=== PATIENT | female | born 1950 | race Caucasian/White ===

== ENCOUNTER 2017-01-17 22:43 | Emergency (ER) | payer BC, MEDICARE ==
[2017-01-17 22:56] VITALS: BP 197/95
--- NOTE | 2017-01-17 23:02 | EDM.PDOC ---
ED HPI GENERAL MEDICAL PROBLEM - General Chief Complaint: Laceration Stated Complaint: fall on ice Time Seen by Provider: 01/17/17 22:56 Source of Information: Reports: Patient History Limitations: Reports: No Limitations - History of Present Illness INITIAL COMMENTS - FREE TEXT/NARRATIVE: 67-year-old female presents the ED after slipping and falling on ice outside of her home tonight. She states she was dropped off onset her apartment building by the cab about 10:00. She was being careful but slipped on the ice and she feels she went prone and then landed hard on the pavement and cement. She struck the back of her occipital head very hard on the concrete. No loss of consciousness but transiently dazed with associated nausea. No vomiting. She has been bleeding from the back of her head. Denies any neck pain back pain some mild right elbow pain. Walk okay. She had to call the cab back to come pick her up to bring her to the hospital. She is alert and oriented. Not on aspirin for the last 8 days. She believes she is up-to-date on her tetanus toxoid. Onset: Today Onset Date: 01/17/17 Onset Time: 22:00 Duration: Minutes: Location: Reports: Head (Exceptional scalp) Quality: Reports: Ache Severity: Moderate Improves with: Reports: None Worsens with: Reports: None Context: Reports: Trauma (Slipped and fell on the ice.) Associated Symptoms: Reports: No Other Symptoms, Rash (Mild pain right elbow), Other. Denies: Confusion, Chest Pain, Cough, cough w sputum, Diaphoresis, Fever /Chills, Headaches, Loss of Appetite, Malaise, Nausea/Vomiting, Seizure, Shortness of Breath, Syncope Treatments [employer] WORKER: Reports: Other (see below) (None.) Head Pain Score (Numeric/FACES): 6 - Related Data Allergies Allergy/AdvReac Type Severity Reaction Status Date / Time amoxicillin Allergy Rash Verified 05/16/14 00:13 Home Meds: Home Meds Aspirin [Speers Aspirin] 81 mg PO DAILY 05/16/14 [History] Lisinopril [Zestril] 10 mg PO DAILY 05/16/14 [History] Metoprolol Succinate 50 mg PO DAILY 05/16/14 [History] Past Medical History Cardiovascular History: Reports: Hypertension Social & Family History - Tobacco Use Smoking Status *Q: Never Smoker - Alcohol Use Days Per Week of Alcohol Use: 0 - Recreational Drug Use Recreational Drug Use: No - Living Situation & Occupation Living situation: Reports: Single Occupation: Employed ED ROS GENERAL - Review of Systems Review Of Systems: See Below Constitutional: Denies: Fever, Chills, Malaise, Weakness, Fatigue, Decreased Appetite, Weight Loss HEENT: Reports: No Symptoms, Other (Just having a lot of dental work done recently had teeth extracted with sutures in place and new dentures placed. Within the last week) Respiratory: Reports: No Symptoms Cardiovascular: Reports: No Symptoms Endocrine: Reports: No Symptoms GI/Abdominal: Reports: No Symptoms : Reports: No Symptoms Musculoskeletal: Reports: Back Pain Skin: Reports: No Symptoms (Chronic low back pain) Neurological: Reports: No Symptoms Psychiatric: Reports: No Symptoms ED EXAM, SKIN/RASH Exam: See Below Exam Limited By: No Limitations General Appearance: Alert, WD/WN, Anxious (Mild), Mild Distress Eye Exam: Bilateral Eye: Normal Inspection, PERRL Ears: Normal External Exam, Normal TMs Throat/Mouth: Normal Inspection (No bleeding in the oral cavity), Normal Lips, Normal Oropharynx, Other Head: Atraumatic, Normocephalic Neck: Normal Inspection, Supple, Non-Tender, Full Range of Motion Respiratory/Chest: No Respiratory Distress, Lungs Clear, Normal Breath Sounds, No Accessory Muscle Use Cardiovascular: Normal Peripheral Pulses, Regular Rate, Rhythm, No Edema, No Murmur Peripheral Pulses: 2+: Posterior Tibial (L), Posterior Tibial (R), Dorsalis Pedis (L), Dorsalis Pedis (R) GI/Abdominal: Normal Bowel Sounds, Soft, Non-Tender, No Organomegaly, No Distention Back Exam: Normal Inspection, Full Range of Motion. No: CVA Tenderness (L), CVA Tenderness (R) Extremities: Other (Minimal abrasion to the) Neurological: Alert, Oriented, CN II-XII Intact, Normal Cognition, Normal Gait, Normal Reflexes, No Motor/Sensory Deficits Psychiatric: Normal Affect Skin: Warm, Dry, Intact, Normal Color, No Rash Course - Vital Signs Last Recorded V/S: Last Vital Signs Temp 36.5 C 01/17/17 22:54 Pulse 90 01/17/17 22:54 Resp 20 01/17/17 22:54 BP 197/95 H 01/17/17 22:54 Pulse Ox 96 01/17/17 22:54 - Orders/Labs/Meds Orders: Active Orders 24 hr Category Date Time Status Head wo Cont [CT] Stat Exams 01/17/17 22:59 Taken - Radiology Interpretation Free Text/Narrative:: 67-year-old female presents to the ED after slipping and falling on the ice outside of her home tonight. She states she almost went prone and landed hard on her back but talk and back of her head hit the pavement pretty hard. She was dazed transiently she noted that she was bleeding from her occipital scalp but of course can't tell where. No loss of consciousness. No nausea or vomiting. Accident happened within the last hour She does have a superficial abrasion to the back of her head which will be cleaned up to make sure it does not require sutures. CT head will be obtained. Her neck shows full an obstructed range of motion I don't think she needs CT of her neck. - Re-Assessments/Exams Free Text/Narrative Re-Assessment/Exam: 01/17/17 23:42 CT of the head is within normal limits other than a significant of course occipital scalp hematoma. No skull fractures or intracranial bleeding or mass effect identified. She feels she is up-to-date on her tetanus toxoid. The wound on her occipital scalp is circular circular and morbid abrasion without any laceration that needs to be repaired. Will therefore be discharged to home. Departure - Departure Time of Disposition: 23:50 Disposition: Home, Self-Care 01 Condition: Fair Clinical Impression: Fall Qualifiers: Encounter type: initial encounter Qualified Code(s): W19.XXXA - Unspecified fall, initial encounter Closed head injury without concussion Qualifiers: Encounter type: initial encounter Qualified Code(s): S09.90XA - Unspecified injury of head, initial encounter Scalp abrasion Qualifiers: Encounter type: initial encounter Qualified Code(s): S00.01XA - Abrasion of scalp, initial encounter - Discharge Information Instructions: Abrasion, [id number] Referrals: Samantha Jiang NP [Primary Care Provider] - Forms: ED Department Discharge Additional Instructions: Evaluation the emergency room tonight in regards to slip and fall on the ice with blunt trauma to the occipital scalp and likely to the mid and lower back and Botox as well. Expect to be much more stiff and sore over the next 24-48 hours due to the fall particularly her neck muscles. Clinically there was no evidence of neck fracture. CT of her head was done due to the size of the scalp hematoma. On examination. CT is negative for any skull fractures or intracranial bleeding or mass effect. There is a circular abrasion about 1 cm in diameter mid occipital scalp. Ideally this should be cleansed daily with soap and water. She showering is okay. Then apply topical antibiotic such as bacitracin or Polysporin to the wound once daily. May take Tylenol or Motrin as needed for headache relief. Follow-up with personal physician if any further problems occur. - My Orders Last 24 Hours: My Active Orders 01/17/17 22:59 Head wo Cont [CT] Stat - Assessment/Plan Last 24 Hours: My Active Orders 01/17/17 22:59 Head wo Cont [CT] Stat
--- NOTE | 2017-01-18 07:38 | CT ---
Head CT Technique: Multiple axial sections through the brain were obtained. Intravenous contrast was not utilized. Comparison: Prior MRI brain dated 12/27/08. Findings: Scalp hematoma identified posteriorly. Ventricles along with basal cisterns and sulci over the convexities appear within normal limits for the patient's age. No abnormal parenchymal densities are seen. No evidence of intracranial hemorrhage. No midline shift or mass effect is seen. Visualized sinuses show minimal mucosal thickening within the ethmoid sinuses which is incidental. No acute calvarial abnormality is identified. Impression: 1. Scalp hematoma posteriorly. 2. No acute intracranial abnormality is identified. No acute skull fracture is seen. Diagnostic code #3 Agree with preliminary report issued by [employer] ([facility] preliminary report dictated on 01/18/17, 12:39 AM Central Time)
== END 2017-01-18 00:07 | disposition home or self-care (01) ==
LOC: JD.ED 22:43
DX: S09.90XA Unspecified injury of head, initial encounter (principal); S00.01XA Abrasion of scalp, initial encounter; I10 Essential (primary) hypertension; W00.0XXA Fall on same level due to ice and snow, initial encounter
CPT/HCPCS: 70450; 70450-26; 99284; 99284-25